=== PATIENT | female | born 1970 | race Caucasian/White ===

== ENCOUNTER 2021-08-27 17:14 | Outpatient (CLI) | payer BC, SELFPAY ==
--- NOTE | ~2021-08-27 | XR_ITS ---
EXAMINATION: XR ribs LT 2V w CXR 2V DATE: 08/27/2021 17:41 INDICATION: Pleurodynia with left-sided chest pain and popping sound. TECHNIQUE: PA and lateral views of the chest and 3 views of the left ribs were obtained. COMPARISON: None FINDINGS: No rib fractures identified. Lungs are clear with no focal airspace opacities, pulmonary edema, pleur al effusion or pneumothorax. Cardiomediastinal silhouette is normal. Cholecystectomy clips in right u pper quadrant. Suture line in the left epigastric region. Mild thoracic spondylosis. IMPRESSION: 1. No rib fracture or acute cardiopulmonary disease. Reviewed, dictated and finalized at location A. R [employer]
== END 2021-08-27 17:15 | disposition home or self-care (01) ==
LOC: ANHIMG 17:21
PROVIDERS: PCP Family Medicine; Visit Provider Nurse Practitioner Family
DX: R07.81 Pleurodynia (principal)
CPT/HCPCS: 71046; 71100

== ENCOUNTER 2022-02-08 01:10 | Day surgery (SDC) | payer BC, SELFPAY ==
[2022-01-21 13:59] VITALS: BMI 42.3
[2022-02-08 08:32] VITALS: BP 124/76; PULSE 92; RESP 20; TEMP 35.7; O2SAT 98; BMI 42.4
--- NOTE | 2022-02-08 08:48 | WPDANESEPPF ---
Anes - Initial Pre Proc Eval Procedure: Operation Date: 02/08/22 09:30 Proposed Procedures p Screening Colonoscopy - Simon Baltazar MD Date/Time: 02/08/22 08:48 Surgeon: Simon Baltazar MD Pre Op Diagnosis: neoplasm screening Patient Data Age: 51 Gender: F Height: 1.7 m Weight: 122.8 kg Last Vital Signs Temp 35.7 C L 02/08/22 08:32 Pulse 92 02/08/22 08:32 Resp 20 02/08/22 08:32 BP 124/76 02/08/22 08:32 Pulse Ox 98 02/08/22 08:32 Allergies Allergy/AdvReac Type Severity Reaction Status Date / Time adhesive tape Allergy Rash Verified 02/08/22 08:32 Home Medications Medication Instructions Recorded Confirmed Type ascorbic acid (vitamin C) 1,000 mg 1 gm PO DAILY 08/31/19 01/21/22 History tablet biotin 5,000 mcg sublingual tablet 5,000 mcg SUBLINGUAL DAILY 08/31/19 01/21/22 History multivitamin 1 tablet PO DAILY 08/31/19 01/21/22 History triamterene 37.5 1 cap PO DAILY #90 cap 07/17/20 01/21/22 Rx mg-hydrochlorothiazide 25 mg capsule cholecalciferol (vitamin D3) 25 1,000 unit PO DAILY tablet 04/10/21 01/21/22 History mcg (1,000 unit) tablet cyclobenzaprine 10 mg tablet 10 mg PO TID PRN #90 tablet 04/10/21 01/21/22 Rx fluticasone propionate 50 1 spray INTRANASAL BID 04/10/21 01/21/22 History mcg/actuation nasal spray,suspension duloxetine 60 mg capsule,delayed 60 mg PO BID #180 cap 10/29/21 01/21/22 Rx release omeprazole 40 mg capsule,delayed 40 mg PO DAILY #90 cap 12/26/21 01/21/22 Rx release triamcinolone acetonide [Triderm] See Rx Instructions TOPICAL BID 01/21/22 01/21/22 History Patient hx anesthesia problems: none Family hx anesthesia problems: none Results Review: All pre-operative results and documents have been reviewed as part of the pre-operative evaluation. 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 COVID-19 (09/19/20) Eczema Glossalgia (~04/04/21) Osteopenia after menopause Paresthesia of left foot Rib pain on left side Screening for breast cancer Screening for colon cancer UTI (urinary tract infection) Vitamin B12 deficiency anemia Vitamin B12 normal at 582 1 10/15/2021 Vitamin D deficiency, unspecified Surgical History Surgical History (Updated 02/08/22 @ 08:51 by Roby Rosario MD) H/O: hysterectomy S/P gastric sleeve procedure Family History Family History Mother Family history of mental disorder Sibling Patient's sister is in good health Grandparent Malignant neoplasm of prostate Family history of lung cancer, Onset Age: 68 Father Family history of lung cancer, Onset Age: 66 Family history of throat cancer, Onset Age: 66 Social History Social History Smoking status: Former smoker Tobacco type: cigarettes Smoking end date: 09/29/89 Alcohol intake: never Substance use type: does not use Living arrangements: with family Anes - Eval Final PreProcedure Day of Procedure 02/08/22 08:48 Patient weight: morbidly obese Heart: regular rate and rhythm Lungs: clear to auscultation Airway: Mallampati scale class II Neurological: alert and oriented Last oral intake: >/= 8 hours ASA classification: III Emergent: no Anesthetic plan: proceed Anesthesia type and monitoring: general GIVS Results Review: All pre-operative results and documents have been reviewed as part of the pre-operative evaluation. Informed Consent: The patient's anesthetic plan and its attendant risks and benefits were discussed with the patient/family/POA. Questions were solicited and answers provided to the satisfaction of the patient/family/POA.
[2022-02-08] MEDS: LACTATED RINGERS 1,000 ML 150 ML IV CONT (08:49)
--- NOTE | 2022-02-08 09:09 | PM.HPGS ---
History of Present Illness History of Present Illness Consent: Risks, benefits, and alternatives have been discussed and questions answered. Patient agrees to proceed with procedure. Chief complaint: neoplasm screening Narrative: Yara Robert is a 51 year old female here for first screening colonoscopy Review of Systems Constitutional: Constitutional: Denies headache(s) and Denies weakness Eyes: Eyes: Denies blurry vision ENT: Reports Normal hearing present, Denies headache(s) and Denies neck pain Cardiovascular: Cardiovascular: Denies chest pain and Denies dyspnea Respiratory: Respiratory: Denies dyspnea Gastrointestinal: Gastrointestinal: Reports no additional gastrointestinal complaints Genitourinary: Genitourinary: Denies dysuria Musculoskeletal: Musculoskeletal: Denies neck pain Integumentary/Breasts: Skin/Breast: Denies dry skin Neurologic: Reports Normal hearing present, Denies headache(s) and Denies weakness Psychiatric: Psychiatric: Denies anxiety Endocrine: Endocrine: Denies change in body appearance Hematologic/Lymphatic: Hematologic/Lymphatic: Denies easy bleeding Allergic/Immunologic: Allergic/Immunologic: Denies urticaria PMFSH Past Medical History Medical History 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 COVID-19 (09/19/20) Eczema Glossalgia (~04/04/21) Osteopenia after menopause Paresthesia of left foot Rib pain on left side Screening for breast cancer Screening for colon cancer UTI (urinary tract infection) Vitamin B12 deficiency anemia Vitamin B12 normal at 582 1 10/15/2021 Vitamin D deficiency, unspecified Surgical History Surgical History (Updated 02/08/22 @ 08:51 by Roby Rosario MD) H/O: hysterectomy S/P gastric sleeve procedure Family History Family History Mother Family history of mental disorder Sibling Patient's sister is in good health Grandparent Malignant neoplasm of prostate Family history of lung cancer, Onset Age: 68 Father Family history of lung cancer, Onset Age: 66 Family history of throat cancer, Onset Age: 66 Social History Social History Smoking status: Former smoker Tobacco type: cigarettes Smoking end date: 09/29/89 Alcohol intake: never Substance use type: does not use Living arrangements: with family Meds Home Medications and Allergies Home Medications Medication Instructions Recorded Confirmed Type ascorbic acid (vitamin C) 1,000 mg 1 gm PO DAILY 08/31/19 01/21/22 History tablet biotin 5,000 mcg sublingual tablet 5,000 mcg SUBLINGUAL DAILY 08/31/19 01/21/22 History multivitamin 1 tablet PO DAILY 08/31/19 01/21/22 History triamterene 37.5 1 cap PO DAILY #90 cap 07/17/20 01/21/22 Rx mg-hydrochlorothiazide 25 mg capsule cholecalciferol (vitamin D3) 25 1,000 unit PO DAILY tablet 04/10/21 01/21/22 History mcg (1,000 unit) tablet cyclobenzaprine 10 mg tablet 10 mg PO TID PRN #90 tablet 04/10/21 01/21/22 Rx fluticasone propionate 50 1 spray INTRANASAL BID 04/10/21 01/21/22 History mcg/actuation nasal spray,suspension duloxetine 60 mg capsule,delayed 60 mg PO BID #180 cap 10/29/21 01/21/22 Rx release omeprazole 40 mg capsule,delayed 40 mg PO DAILY #90 cap 12/26/21 01/21/22 Rx release triamcinolone acetonide [Triderm] See Rx Instructions TOPICAL BID 01/21/22 01/21/22 History Allergies Allergy/AdvReac Type Severity Reaction Status Date / Time adhesive tape Allergy Rash Verified 02/08/22 08:32 Vital Signs Vital Signs - 24 hr 02/08/22 08:32 Temperature 96.3 F L Pulse Rate 92 Respiratory Rate 20 Blood Pressure 124/76 Pulse Oximetry 98 Exam Const: General: comfortable and no acute distress HENMT: General nose exam: Normal nares present Eyes:
[2022-02-08 09:33] VITALS: BP 119/82; PULSE 84; RESP 14; O2SAT 98
[2022-02-08 09:43] VITALS: BP 122/79; PULSE 84; RESP 16; O2SAT 97
[2022-02-08 09:53] VITALS: BP 125/82; PULSE 79; RESP 20; O2SAT 100
== END 2022-02-08 10:05 | disposition home or self-care (01) ==
PROVIDERS: PCP Family Medicine; Visit Provider Internal Medicine Gastroenterology
PROC: 0DJD8ZZ Inspection of Lower Intestinal Tract, Via Natural or Artificial Opening Endoscopic (ICD-10-PCS; CPT 45378; principal; 2022-02-08 09:30)
DX: Z12.11 Encounter for screening for malignant neoplasm of colon (principal); D12.4 Benign neoplasm of descending colon; K64.8 Other hemorrhoids; E55.9 Vitamin D deficiency, unspecified; M85.80 Other specified disorders of bone density and structure, unspecified site; Z98.84 Bariatric surgery status; Z87.891 Personal history of nicotine dependence; E66.01 Morbid (severe) obesity due to excess calories; Z68.41 Body mass index [BMI] 40.0-44.9, adult
CPT/HCPCS: 45385; 88305; J2704; J7120

== ENCOUNTER → 2022-07-22 10:31 | Outpatient (CLI) | payer BC, SELFPAY ==
--- NOTE | ~2022-07-22 | XR_ITS ---
XR tibia fibula RT 2V DATE: 07/22/2022 10:43 INDICATION: Right lower limb cellulitis TECHNIQUE: AP and lateral views COMPARISON: None FINDINGS: There is soft tissue prominence of the lower leg and ankle which may be due to obesity and/ or soft tissue swelling. There is plantar and posterior calcaneal enthesopathy. There is mild osteoarthritis at the tibiotalar joint. No fracture or dislocation, periosteal reaction or bone destruction of the tibia or fibula. Normal al ignment at the knee and ankle joints. 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
== END ==
PROVIDERS: PCP Family Medicine; Visit Provider Family Medicine
DX: L03.115 Cellulitis of right lower limb (principal); M19.071 Primary osteoarthritis, right ankle and foot; M77.31 Calcaneal spur, right foot
CPT/HCPCS: 73590

== ENCOUNTER 2022-11-25 08:06 | Outpatient (CLI) | payer BC, SELFPAY ==
--- NOTE | 2022-12-15 22:18 | WPDHOMESLEEP ---
Sleep Study - Home Unattended Date of Study: 11/25/22 Ordering Provider: Guillermo Brown MD Interpreting Provider: Alexia Brownlee, DO Home Sleep Study Type: Apnea Link Air Height: 1.68 m Weight: 117.027 kg Body Mass Index: 41.6 Neck Circumference (inches): 16 [place]: 9 Reason for Sleep Study Daytime hypersomnia. Previously diagnosed YUDITH on CPAP in 2017. 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 Sleep History The patient is a 52-year-old female with depression, anxiety, GERD, bilateral lower extremity edema and history of tobacco use that had a sleep study ordered by her primary care so she can requalify for CPAP therapy. The patient denies awakening from sleep short of breath. She rarely awakens at night with heartburn, belching or cough. She constantly snores loudly enough that others complain. She occasionally has trouble sleeping when she has a cold. She denies waking up gasping for air throughout the night. She rarely has breathing problems at night observed by herself or others. She frequently sweats excessively at night. She occasionally has heart palpitations or irregular heartbeats during the night. She rarely falls asleep during the day and never falls asleep while driving. She occasionally experiences loss of muscle tone when extremely emotional. She frequently has trouble at school or work due to sleepiness. She denies feeling unable to move when waking up or falling asleep. She occasionally experiences vivid dreamlike scenes upon awakening or falling asleep. She denies feeling afraid of going to sleep. She rarely has nightmares. She occasionally remembers her dreams. She frequently has thoughts racing through her mind. She occasionally feels sad, depressed and anxious. She frequently has muscular tension. She occasionally notices parts of her body jerk. She occasionally kicks during the night. She occasionally has crawling and aching feelings in her legs and occasionally has leg pain during the night. She denies awakening with morning jaw pain. She is frequently bothered by pain during the day and occasionally awakened by pain during the night. She occasionally wakes up feeling stiff in the morning. She occasionally wakes up with sore or achy muscles. She occasionally wakes up with pain in the neck, spine or other joints. She goes to bed at 10:00 p.m. on weekdays and at 11:00 p.m. on the weekends. It takes her 15-30 minutes to fall asleep. She wakes up 2-3 times throughout the night. She is able to fall back asleep within 2-3 minutes. She wakes up at 5:00 a.m. on weekdays and at 7:00 a.m. on the weekends. She typically gets 5-6 hours of sleep a night. She will stay in the bed for 5-15 minutes on weekdays after waking up in the morning. She will stay in bed for 20-25 minutes on the weekends. She currently lives with her . She will consume caffeinated beverages within 2 hours of bedtime. She does not engage in physical exercise before bedtime. She will watch television before falling asleep. She will take naps during the afternoon or the evening but they are minimally refreshing. She drinks 2-3 caffeinated beverages per day. She quit smoking cigarettes 30 years ago. She denies alcohol and recreational drug use. [facility] Past Medical History Medical History Acquired trigger finger of right little finger (~06/2022) ADHD (attention deficit hyperactivity disorder), inattentive type (~03/2022) Body mass index (BMI) 40.0-44.9, adult (03/11/19) Cellulitis of leg, right (~07/20/22) X-ray of the right tibia and fibula on 07/22/2022 reveals no bony defects, soft tissue swelling of the leg. Heel spurs noted. JOSE negative on 07/22/2022 with sedimentation rate elevated and normal CBC. 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
[2022-12-15 22:26] VITALS: BMI 41.6
== END 2022-11-26 19:01 | disposition home or self-care (01) ==
LOC: ANHCSM 08:07
PROVIDERS: PCP Family Medicine; Visit Provider Family Medicine
DX: G47.10 Hypersomnia, unspecified (principal); G47.33 Obstructive sleep apnea (adult) (pediatric)
CPT/HCPCS: 95806